=== PATIENT | male | born 1945 | race African-American/Black ===

== ENCOUNTER 2017-01-11 22:32 | Inpatient (IN) ==
[2017-01-12] MEDS ORDERED: Ringers Solution, Lactated 1,000 ML IVC ONE (00:37)
--- NOTE | 2017-01-12 01:06 | General Surg History&Physical ---
Date of Encounter: 01/12/17 Time of Encounter: 01:01 Assessment and Plan (1) Small bowel obstruction Current Visit: Yes Status: Acute admit to inpatient NPO, except medications IVF: D5LR@ 125 NG tube: intermittent wall suction; AXR to verify placement benavides catheter strict I/O q4hrs vitals q4hrs DVT prophylaxis: SQH activity as tolerated morphine IV 2mg q2hrs for pain control replete electrolytes -K@4.0 -Mg@2.0 -PO4@3.0 due to lack of surgical history, patient will likely require surgery to resolve obstruction; will attempt NG tube for decompression and resolution and also to allow time for resuscitation; however if no resolution within 24-48hrs, then will plan for operative intervention; The assessment and plan as outlined above was discussed with the patient and/or family members who expressed understanding and agreement. All questions were answered. (2) Hypovolemia dehydration Current Visit: Yes Status: Acute due to poor PO intake and vomiting; - IVF -benavides catheter to track UOP/overall fluid status/resuscitation efforts - trend electrolytes The assessment and plan as outlined above was discussed with the patient and/or family members who expressed understanding and agreement. All questions were answered. (3) Acute renal failure (ARF) Current Visit: Yes Status: Acute due to dehydration; - IVF, benavides catheter, monitor UOP The assessment and plan as outlined above was discussed with the patient and/or family members who expressed understanding and agreement. All questions were answered. Qualifiers: Acute renal failure type: unspecified Qualified Code(s): N17.9 - Acute kidney failure, unspecified (4) Hypertension Current Visit: Yes Status: Chronic - restart home meds - give one time dose of 20mg IV hydralazine - titrate SBP to < 150mm HG - cardiology consult for HTN management, pre-operative risk assessmenet; The assessment and plan as outlined above was discussed with the patient and/or family members who expressed understanding and agreement. All questions were answered. Qualifiers: Hypertension type: essential hypertension Qualified Code(s): I10 - Essential (primary) hypertension History of Present Illness Chief complaint: abdominal distension, nausea, vomiting HPI: Mr. Bocanegra is a 71 year old male with a PMH significant for hypertension and prostate cancer presents with a 2 day history of abdominal distention with associated nausea and vomiting. in addition the patient also reports mild, dull abdominal pain/ache along his umbilicus. the pain is nonradiating with no identifiable alleviating or exacerbating factors the patient reports no fevers, chills, chest pain or shortness of breath. Addition the patient reports not having a bowel movement for greater than 24hrs. due to the worsening abdominal distention pain as well as nausea and vomiting the patient went to the emergency department at an outside hospital for further evaluation CT scan was obtained which demonstrated a small bowel obstruction and he was subsequently transferred to [facility] for further care. Past Med Surg Social Fam HX - Past Medical History Source: patient Medical history: cancer, hypertension, kidney stones Psychiatric history: no psych history - Past Surgical History Surgical History: other (no abdominal surgeries) - Social History Smoking Status: Current some day smoker Smokeless Tobacco Status: No Alcohol use: occasionally Drug use: none - Additional Family History Additional family history: diabetes, HTN Medications and Allergies Losartan Potassium [Cozaar] 50 mg PO DAILY 03/22/16 [History] Tamsulosin [Flomax] 0.4 mg PO HS 11/24/16 [History] Trospium Chloride 20 mg PO DAILY 11/24/16 [History] Atenolol [Tenormin] 50 mg PO DAILY #30 tablet 12/02/16 [Rx] hydrALAZINE [HydrALAZINE] 25 mg PO BID 12/02/16 [History] Diltiazem HCl [Diltiazem 24Hr Cd] 240 mg PO DAILY 01/11/17 [History] Docusate [Colace] 100 mg PO DAILY 01/11/17 [History] 3 Allergy/AdvReac Type Severity Reaction Status Date / Time No Known Allergies Allergy Verified 01/11/17 15:39 Review of Systems All systems PM: reviewed and no additional remarkable complaints except as stated All systems PM: A 10-system review of systems was performed and is negative for pertinent findings except as documented above in the HPI. General Surgery Exam Initial Vital Signs Temp Pulse Resp BP Pulse Ox 98 F 61 18 187/100 88 01/11/17 22:41 01/11/17 22:41 01/11/17 22:41 01/11/17 22:41 01/11/17 22:41 - General physical appearance well developed, well nourished, no distress - Eyes normal ocular movement - ENT poor fci, CN 2-12 grossly intact - Respiratory normal expansion, normal respiratory effort, clear to auscultation - Abdomen Abdomen general surgery: Present: soft, tympanic, distended, tender Hernia: Present: none Results - Labs All other labs normal. wbc: 15.1 h/h: 15.3/43.2 plt:229 Na: 143 KL 3.8 Cl: 106 HCO3: 25 BUN: 18 Cr: 1.55 glu: 131 - Imaging CT scan - abdomen: report reviewed (dilated stomach, dilated loops of small bowel; colon decompressed; contrast within small bowel; juanley transition point in mid jejunum)
[2017-01-12] MEDS ORDERED: *HR* Labetalol 20 MG/4 ML SYRINGE IVP ONE (02:16)
[2017-01-12] MEDS: D5% in Lactated Ringers 1,000 ML IVC SCH ×2 (04:54→22:30)
[2017-01-12] MEDS: *HR* Heparin 5,000 UNIT/ML VIAL SQ SCH ×3 (06:01→20:49)
[2017-01-12 06:28] LABS: INR 1.1; Prothrombin Time 11.6 Seconds (9.4-12.1)
[2017-01-12 06:31] LABS: Activated Partial Thrombo Time 29.2 Seconds (26.0-36.0)
[2017-01-12 06:46] LABS: BUN/Creatinine Ratio 12 (6-26); Blood Urea Nitrogen 16 mg/dL (8-26); Calcium 9.3 mg/dL (8.6-10.8); Carbon Dioxide 25 mEq/L (19-29); Chloride 107 mEq/L (98-109); Glucose 138 mg/dL (70-99); Magnesium 1.7 mg/dL (1.6-2.6); Osmolality,Calculated 295 (280-300); Phosphorous 2.6 mg/dL (2.3-4.7); Potassium 3.4 mEq/L (3.5-4.5); Sodium 141 mEq/L (136-145); eGFR For African Americans > 60 (> 60); eGFR For Non-African Americans 51 (> 60)
[2017-01-12] MEDS ORDERED: hydrALAZINE 25 MG TABLET PO SCH (09:00)
[2017-01-12] MEDS ORDERED: Diltiazem CD (24hr) 240 MG CAPSULE PO SCH (09:00)
--- NOTE | 2017-01-12 09:11 | General Surgery Progress Note ---
Date of Encounter: 01/12/17 Time of Encounter: 07:30 - Assessment and Plan (1) Small bowel obstruction Current Visit: Yes Status: Acute cont NG tube; keep nPO cont IVF; change to d51/2NS +20K repeat KUB to assess for transit of contrast in the colon ambulate as tolerated possible OR in AM (2) Hypovolemia dehydration Current Visit: Yes Status: Acute cont IVF; change to MIVF (d51/2NS +20K cont benavides catheter at present (3) Acute renal failure (ARF) Current Visit: Yes Status: Acute improved Cr; cont to trend cont benavides catheter repeat labs in AM Qualifiers: Acute renal failure type: unspecified Qualified Code(s): N17.9 - Acute kidney failure, unspecified (4) Hypertension Current Visit: Yes Status: Chronic cont home meds consult cardiology for pre-op risk stratification consult renal for BP management, renal failure recommendations goal SBP <150 Qualifiers: Hypertension type: essential hypertension Qualified Code(s): I10 - Essential (primary) hypertension (5) Hypokalemia Current Visit: Yes Status: Acute replete lytes: keep K at 4.0 or greater likely due to GI losses from NG tube (6) Hypomagnesemia Current Visit: Yes Status: Acute replete mg; keep at 2.0 (7) Hypophosphatemia Current Visit: Yes Status: Acute replete Phosp; keep at 3.0 Subjective Patient reports: no new complaints (no acute events overnight; ), feels better, pain is less, flatus ( minimal flatus), afebrile Objective AF; hypertensive with SBP 160s-200s; all other vital signs within normal limits ; - General physical appearance well developed, well nourished, no distress - Eyes normal ocular movement (no changes in vision; no blurry vision; ) - ENT CN 2-12 grossly intact - Neck Neck exam: no lymphadectomy - Respiratory normal expansion, normal respiratory effort, clear to auscultation - Cardiovascular Cardiovascular exam: Present: RRR - Abdomen Abdomen: Present: soft, non tender (decreased distention), distended (decreased distension compared to admission) Hernia: none - Integumentary no rash, no abnormal pigmentation - Neurologic CN 2-12 grossly intact - Psychiatric oriented to time, oriented to person, oriented to place - Labs 01/12/17 06:10 01/12/17 06:10 - Imaging Abdominal x-ray: report reviewed, image reviewed (NG tube in the correct place) Consult Discharge Plan - Plan Referrals: Dejuan Bowen CNP [Primary Care Provider] -
[2017-01-12] MEDS: *HR* Morphine 2 MG/ML SYRINGE IVP PRN ×3 (09:22→21:35)
[2017-01-12] MEDS: Ipratropium/Albuterol Neb 3 ML IH SCH ×4 (10:49→20:18)
--- NOTE | 2017-01-12 14:19 | Cardiology Consult Note ---
Date of Encounter: 01/12/17 Time of Encounter: 14:16 Assessment and Plan (1) Accelerated hypertension Current Visit: Yes Status: Acute BP as high as 213/94. Most recent BP 173/83. Pt received PO antihypertensives this AM, since put on hold. At home, pt was on Cardizem CD 240mg daily, Hydralazine 25mg TID, Atenolol 50mg daily, Cozaar 50mg daily. Will start pt on scheduled IV Hydralazine 20mg [id number] and scheduled IV metoprolol 5mg [id number]. Continue to monitor/adjust as necessary. Goal BP ~170s systolic given he was previously 200s. Resume PO antihypertensives when able. Anticipate sign off once seen and evaluated by Dr. Mandeep Byrne. (2) Pre-operative cardiovascular examination Current Visit: Yes Status: Acute Evidence of small bowel obstruction. Pt has no personal hx of CAD. Denies chest pain or dyspnea. Stress test 10/06/16 was negative for ischemia or infarct. EKG has no ischemic changes from baseline. Recommend optimizing BP prior to surgery. Acceptable low risk from cardiac standpoint for surgery. Discussion w patient/family: The assessment and plan as outlined above was discussed with the patient and/or family members who expressed understanding and agreement. All questions were answered. Thank you for involving us in the care of your patient. Please call with any questions. I will discuss all the above with Dr. Mandeep Byrne and make changes as necessary. History of Present Illness Consult date: 01/12/17 Requesting physician: Alissa Madrigal Consult reason: HTN, preop Chief complaint: abdominal pain History of present illness: Mr. Bocanegra is a 71 year old male with PMH significant for hypertension, CKD stage 3, and prostate cancer presented with a 2 day history of abdominal distention with associated nausea and vomitin, reported not having a bowel movement for greater than 24hrs. CT scan at outside facility demonstrated a small bowel obstruction and he was subsequently transferred to [facility] for further care. He has been hypertensive with BP as high as 213 /94. Cardiology consulted for hypertension and cardiac risk stratification in the event he needs surgery. He denies chest pain or dyspnea, denies any personal hx of CAD. Prior CV testing: Stress test 10/06/16: Perfusion imaging negative for ischemia or infarct. Hypertensive during study. Gated EF 70%. Past Med Surg Social Fam HX - Past Medical History Medical history: cancer, hypertension, kidney stones Psychiatric history: no psych history - Past Surgical History Surgical History: other (no abdominal surgeries) - Social History Smoking Status: Current some day smoker Smokeless Tobacco Status: No Alcohol use: occasionally Drug use: none - Family History Brother Living Status: Still Living Hx Family Cardiac Disorders: Yes (heart disease) Hx Family GI Disorders: Yes (kidney disease) Medications and Allergies Losartan Potassium [Cozaar] 50 mg PO DAILY 03/22/16 [History] Tamsulosin [Flomax] 0.4 mg PO HS 11/24/16 [History] Trospium Chloride 20 mg PO DAILY 11/24/16 [History] Atenolol [Tenormin] 50 mg PO DAILY #30 tablet 12/02/16 [Rx] hydrALAZINE [HydrALAZINE] 25 mg PO TID 12/02/16 [History] Diltiazem HCl [Diltiazem 24Hr Cd] 240 mg PO DAILY 01/11/17 [History] Docusate [Colace] 100 mg PO DAILY 01/11/17 [History] Fluticasone Propionate Nasal [Flonase] 2 spr NS DAILY 01/12/17 [History] 3 Allergy/AdvReac Type Severity Reaction Status Date / Time No Known Allergies Allergy Verified 01/11/17 15:39 All Systems Review: A 10-system review of systems was performed and is negative for pertinent findings except as documented above in the HPI. - Gastrointestinal Gastrointestinal: abdominal pain, constipation, nausea Physical Examination Vital Signs, Last 4 Hours Temp Pulse Resp BP Pulse Ox 01/12/17 10:49 16 91 01/12/17 10:36 98.5 F 71 16 213/94 93 Vital Signs Temp Pulse Resp BP Pulse Ox 01/12/17 10:49 16 91 01/12/17 10:36 98.5 F 71 16 213/94 93 01/12/17 07:25 98.8 F 82 16 172/86 96 01/12/17 04:52 99.3 F 84 17 167/84 92 01/12/17 02:14 98.1 F 78 17 193/80 93 01/12/17 00:26 97.8 F 64 18 205/92 92 01/12/17 00:07 98 F 16 178/98 01/11/17 22:41 98 F 61 18 187/100 88 Intake and Output 01/11/17 01/12/17 01/12/17 23:59 07:59 15:59 Intake Total 30 / 30 Output Total 500 / 500 650 / 650 Balance -470 / -470 -650 / -650 Intake: Oral 0 / 0 Other 30 / 30 Output: Urine 300 / 300 Urethral ([place]) 300 / 300 Catheter 200 / 200 450 / 450 Gastric Drainage 0 / 0 200 / 200 Other: Meal NPO Stool Size Small Stool Color Brown Weight 90.718 kg 93.6 kg Blood Glucose* 129 105 Patient Weight 01/12/17 23:59 Weight 93.6 kg General: Conversant, No Apparent Distress HEENT: Atraumatic, Normocephaly, Mucus Membranes Moist Neck: No JVD, Normal carotid pulses Cardiac: Reg Rate and Rhythm, Normal S1 and S2, No Murmur Lungs: Normal Breath Sounds, No Wheeze, Rales, Rhonchi Neuro: Alert and responsive, No focal deficits noted Abdomen: Other (tender on palpation) Skin: No rashes noted on visualized skin Musculoskeletal: No Chest Wall Tenderness Extremities: No Clubbing, No Cyanosis, No Edema, Normal Pulses Results 01/12/17 06:10 01/12/17 06:10 Short CBC 01/12/17 Range/Units 06:10 WBC 14.5 H (4.3-11.1) K/mcL BMP 01/12/17 Range/Units 06:10 Sodium 141 (136-145) mEq/L Potassium 3.4 L (3.5-4.5) mEq/L Chloride 107 (98-109) mEq/L Carbon Dioxide 25 (19-29) mEq/L BUN 16 (8-26) mg/dL Creatinine 1.38 H (0.72-1.25) mg/dL Glucose 138 H (70-99) mg/dL Calcium 9.3 (8.6-10.8) mg/dL Impressions KUB X-Ray 01/12/17 00:21 IMPRESSION: Enteric tube side hole seen at the GE junction, with the tip in the proximal gastric body. Dilated loops of small bowel, which could be related to ileus or obstruction. D/ / Jules Lynne MD / Jules Lynne MD Interpreting Provider: Jules Lynne MD Abdomen X-Ray 01/12/17 08:57 IMPRESSION: CT and prior radiograph compare to current study suggest either ileus or a partial small bowel obstruction. Enteric contrast has progressed into the colon. Recommend advancement of nasogastric tube as side holes are at the GE junction. D/ / Eran Webb MD / Eran Webb MD Interpreting Provider: Eran Webb MD Active Medications Albuterol/Ipratropium (Duoneb) 3 ml IH [id number] JOSS Stop: 07/14/17 09:01 Last Admin: 01/12/17 10:49 Dose: 3 ml Heparin Sodium (Porcine) (Heparin) 5,000 unit SQ Q8HCO JOSS Stop: 07/14/17 06:01 Last Admin: 01/12/17 06:01 Dose: 5,000 unit Dextrose/Lactated Ringer's (D5% & Lact. Ringers 1000 Ml Bag) 1,000 mls @ 125 mls/hr IVC .Q8H JOSS Stop: 07/14/17 00:46 Last Admin: 01/12/17 04:54 Dose: 125 mls/hr Morphine Sulfate (Morphine Sulfate) 2 mg IVP Q4HR PRN PRN Reason: Pain Stop: 07/14/17 04:01 Last Admin: 01/12/17 09:22 Dose: 2 mg Oxybutynin Chloride (Ditropan) 5 mg PO BID JOSS Stop: 07/14/17 09:01 Last Admin: 01/12/17 10:53 Dose: Not Given Tamsulosin HCl (Flomax) 0.4 mg PO HS JOSS PRN Reason: Protocol Stop: 07/14/17 21:01 - Imaging and Cardiology Stress Test: report reviewed (SR, left atrial enlargement, LVH) Consult Discharge Plan - Plan Referrals: Dejuan Bowen, [employer] [Primary Care Provider] -
--- NOTE | 2017-01-12 17:24 | Event Note ---
Date of Encounter: 01/12/17 Time of Encounter: 17:22 Nephrology Hx of CKD stage III, with his latest GFR for [place] actually trending better. I've ordered CKD labs for the AM including Mg d/t the mild hypokalemia. Full recommendations to follow tomorrow. Thank you.
[2017-01-12] MEDS: *HR* Metoprolol 5 MG/5 ML VIAL IVP SCH (18:24)
[2017-01-12 18:43] LABS: Bilirubin,Urine Negative (Negative); Blood,Urine Negative (Negative); Clarity,Urine Clear (Clear); Color,Urine Yellow (Yellow); Glucose,Urine (UA) Normal (Normal); Ketones,Urine Negative (Negative); Leukocyte Esterase,Urine Negative (Negative); Nitrite,Urine Negative (Negative); Protein,Urine 30 mg/dL (Neg-Trace); Specific Gravity,Urine 1.019 (1.010-1.025); Urobilinogen,Urine Normal (Normal)
[2017-01-12 18:45] LABS: Bacteria,Urine None Seen per hpf (None-Few); Hyaline Casts,Urine None Seen per lpf (None-Few); Squamous Epithelial Cell,Urine Moderate per lpf (None-Few); WBC,Urine 0-3 per hpf (0-3)
--- NOTE | 2017-01-12 19:16 | Anesthesia Evaluation PreOp ---
Date of Encounter: 01/12/17 Time of Encounter: 21:30 - Past History Planned Operation: Diagnostic laparoscopy, poss ex lap Cardiac History: HTN Pulmonary History: Smoker [employer] History: Denies Any Significant HX Other Medical History: Renal (acute on chronic renal failure due to dehydration) Anesthesia History: No Prior Anesthetic Complications, Past Anesthesia (Right ureteroscopy) Alcohol Use: occasionally Drug use: none Medications and Allergies Losartan Potassium [Cozaar] 50 mg PO DAILY 03/22/16 [History] Tamsulosin [Flomax] 0.4 mg PO HS 11/24/16 [History] Trospium Chloride 20 mg PO DAILY 11/24/16 [History] Atenolol [Tenormin] 50 mg PO DAILY #30 tablet 12/02/16 [Rx] hydrALAZINE [HydrALAZINE] 25 mg PO TID 12/02/16 [History] Diltiazem HCl [Diltiazem 24Hr Cd] 240 mg PO DAILY 01/11/17 [History] Docusate [Colace] 100 mg PO DAILY 01/11/17 [History] Fluticasone Propionate Nasal [Flonase] 2 spr NS DAILY 01/12/17 [History] 3 Allergy/AdvReac Type Severity Reaction Status Date / Time No Known Allergies Allergy Verified 01/11/17 15:39 - Meds/Allergy Pre-op Review Medications Reviewed: Yes Allergies Reviewed: Yes Beta Blockers on Current Med List: Yes (atenolol) Anesthesia Results - Labs 01/12/17 06:10 01/12/17 06:10 - Imaging EKG: report reviewed, image reviewed (SINUS BRADYCARDIA) Additional studies: Cardiology clearance for surgery: Stress test 10/06/16 was negative for ischemia or infarct. EKG has no ischemic changes from baseline. Recommend optimizing BP prior to surgery. Acceptable low risk from cardiac standpoint for surgery. Anesthesia Exam Last Vital Signs Temp 99.0 F 01/12/17 19:12 Pulse 68 01/12/17 19:12 Resp 18 01/12/17 19:12 BP 152/74 01/12/17 19:12 Pulse Ox 93 01/12/17 19:12 Weight: 94 kg - HEENT Pupil (Motor): Pupils equal, EOMI Mallampati: III Teeth: Missing, Poor dentition Denture Type: Lower: Partial Oral Opening: Greater than 3 - [employer] LOC: Oriented [employer] Motor: Normal RUE, Normal LUE, Normal RLE, Normal LLE, Normal Face - Cardiac Rhythm: Regular Murmur: None - Pulmonary Breath Sounds: bilateral Clear Respiratory Effort: Symmetrical Anesthesia Assess/Plan ASA Score: 2 Modified [place] Scale for Level of Consciousness: Cooperative, oriented, and tranquil Anesthetic Plan: General Monitoring Plan: Standard Monitors Recovery Plan: PACU
[2017-01-13] MEDS: Ipratropium/Albuterol Neb 3 ML IH SCH ×8 (00:07→23:41)
[2017-01-13] MEDS: D5% in Lactated Ringers 1,000 ML IVC SCH ×4 (00:27→20:08)
[2017-01-13] MEDS: *HR* Metoprolol 5 MG/5 ML VIAL IVP SCH ×5 (00:28→23:08)
[2017-01-13] MEDS: *HR* Heparin 5,000 UNIT/ML VIAL SQ SCH ×3 (06:01→21:00)
[2017-01-13] MEDS: *HR* Morphine 2 MG/ML SYRINGE IVP PRN ×3 (06:11→20:07)
[2017-01-13 07:42] LABS: Basophils % 0.2 %; Eosinophils % 0.3 %; Hematocrit 39.2 % (37.5-50.1); Hemoglobin 13.1 g/dL (12.9-16.9); Immature Granulocytes % 0.3 % (0-4); Lymphocytes # 2.6 K/mcL (0.6-4.6); Lymphocytes % 17.2 %; Mean Corpuscular HGB Conc 33.4 g/dL (31.6-35.5); Mean Corpuscular Hemoglobin 29.4 pg (28.0-33.3); Mean Corpuscular Volume 87.9 fL (83.0-100.0); Mean Platelet Volume 11.9 fL (9.4-12.4); Monocytes # 1.5 K/mcL (0.0-1.3); Monocytes % 10.2 %; Neutrophils # 10.8 K/mcL (1.6-8.9); Platelet Count 215 K/mcL (140-400); Red Blood Count 4.46 M/mcL (4.19-5.50); Red Cell Distribution Width 13.7 % (11.5-14.5); Segmented Neutrophils % 71.8 %
[2017-01-13 09:00] LABS: Calcium 9.3 mg/dL (8.6-10.8); Magnesium 1.9 mg/dL (1.6-2.6); Phosphorous 2.2 mg/dL (2.3-4.7); Potassium 3.4 mEq/L (3.5-4.5); Uric Acid 5.9 mg/dL (3.5-7.2)
--- NOTE | 2017-01-13 12:05 | Electrocardiograph Report ---
[place] [address] Test Date: 2017-01-12 Pat Name: Bi Bocanegra Department: 115 Room: 3A25 Gender: M Barkeep: [id number] : 1945 Requested By: Bennie Pérez Order Number: [id number] Reading MD: Mandeep Byrne Measurements Intervals [place] Rate: 81 P: 62 TX: 145 QRS: 51 QRSD: 94 T: 38 QT: 352 QTc: 390 Interpretive Statements SINUS RHYTHM POSSIBLE RIGHT ATRIAL ENLARGEMENT LEFT ATRIAL ENLARGEMENT POSSIBLE LEFT VENTRICULAR HYPERTROPHY NONSPECIFIC T-WAVE ABNORMALITY Electronically Signed On 01-13-2017 12:03:38 EDT by Mandeep Byrne
--- NOTE | 2017-01-13 12:45 | Nephrology Consult Note ---
Date of Encounter: 01/13/17 Time of Encounter: 10:30 Assessment and Plan (1) CKD (chronic kidney disease), stage III Current Visit: Yes Status: Chronic Hx of CKD stage III and he's slightly better than his baseline, so there is no MYLES at present. Non-oliguric. Agree with IVF while NPO for the SBO. Mild hypokalemia, replete Hx of post-renal complications and follows with [facility]. Monitor UOP. I reviewed with the pt his recent CKD work up from the clinic appt a few weeks ago. 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 No need for HD at this time. Continue to follow a renal protective strategy. My colleague Dr. Bryant will be on-call tomorrow for our group. Thank you. (2) Vitamin D deficiency Current Visit: Yes Status: Acute See above (3) Hypertension Current Visit: Yes Status: Chronic See above Qualifiers: Hypertension type: essential hypertension Qualified Code(s): I10 - Essential (primary) hypertension History of Present Illness - Reason for Consult Consult date: 01/13/17 Chronic Kidney Disease Requesting physician: Nader Hebert - Chief Complaint CKD - History of Present Illness 71 y/o very pleasant AAM with a pmh of CKD stage III, longstanding uncontrolled HTN and et al who presented with an SBO. Nephrology was consulted given his hx of CKD. He did not affirm use of NSAIDs recently. He was accompanied by his brother. The pt recently established with me in my CKD clinic in [place]. He had an NGT placed on suction. He did not report LE edema or CP. Past Med Surg Social Fam HX - Past Medical History Medical history: cancer, hypertension, kidney stones Psychiatric history: no psych history - Past Surgical History Surgical History: other (no abdominal surgeries) - Social History Smoking Status: Current some day smoker Smokeless Tobacco Status: No Alcohol use: occasionally Drug use: none - Family History Brother Living Status: Still Living Hx Family Cardiac Disorders: Yes (heart disease) Hx Family GI Disorders: Yes (kidney disease) Medications and Allergies Losartan Potassium [Cozaar] 50 mg PO DAILY 03/22/16 [History] Tamsulosin [Flomax] 0.4 mg PO HS 11/24/16 [History] Trospium Chloride 20 mg PO DAILY 11/24/16 [History] Atenolol [Tenormin] 50 mg PO DAILY #30 tablet 12/02/16 [Rx] hydrALAZINE [HydrALAZINE] 25 mg PO TID 12/02/16 [History] Diltiazem HCl [Diltiazem 24Hr Cd] 240 mg PO DAILY 01/11/17 [History] Docusate [Colace] 100 mg PO DAILY 01/11/17 [History] Fluticasone Propionate Nasal [Flonase] 2 spr NS DAILY 01/12/17 [History] 3 Allergy/AdvReac Type Severity Reaction Status Date / Time No Known Allergies Allergy Verified 01/11/17 15:39 Review of Systems All Systems: reviewed and no additional remarkable complaints except as stated Exam - Vital Signs Vital signs: Initial Vital Signs Temp Pulse Resp BP Pulse Ox 98 F 61 18 187/100 88 01/11/17 22:41 01/11/17 22:41 01/11/17 22:41 01/11/17 22:41 01/11/17 22:41 Vital Signs - Last 8 Hours Temp Pulse Resp BP Pulse Ox 01/13/17 10:44 98.0 F 69 20 171/85 93 01/13/17 08:48 92 01/13/17 08:00 16 90 01/13/17 05:59 99.7 F H 71 20 157/72 92 Intake and Output 01/12/17 01/13/17 01/13/17 23:59 07:59 15:59 Intake Total 30 / 30 30 / 30 1000 / 1000 Output Total 300 / 300 925 / 925 325 / 325 Balance -270 / -270 -895 / -895 675 / 675 Intake: IV Fluids 1000 / 1000 D5% & Lact. Ringers 1000 1000 / 1000 Ml Bag 1,000 ML @ 125 mls /hr IVC .Q8H [facility] Rx#: [id number] Oral 0 / 0 0 / 0 0 / 0 Other 30 / 30 30 / 30 Output: Catheter 300 / 300 250 / 250 150 / 150 Gastric Drainage 0 / 0 675 / 675 175 / 175 Other: Meal NPO NPO Percent of Meal Consumed 0% Weight 93.1 kg Blood Glucose* 128 140 130 Patient Weight 01/13/17 23:59 Weight 93.1 kg - General Appearance General appearance: well-developed, well-nourished, appears started age Additional Comments: NGT Neck: supple Respiratory: clear Cardiology: no edema, regular rate, regular rhythm, normal S1, normal S2 Gastrointestinal: no tenderness, no guarding Integumentary: warm and dry Neurologic: no focal deficit, no asterixis, alert and oriented x3 Musculoskeletal: no deformities, no erythema, no clubbing Psychiatric: cooperative Results - Lab Results 01/13/17 04:40 01/13/17 07:58 Most recent lab results Calcium 9.3 mg/dL (8.6-10.8) 01/13/17 07:58 Phosphorus 2.2 mg/dL (2.3-4.7) L 01/13/17 07:58 Magnesium 1.9 mg/dL (1.6-2.6) 01/13/17 07:58 I reviewed the above information and progress notes, labs, med lists, vitals and imaging studies. Consult Discharge Plan - Plan Referrals: Dejuan Bowen [employer]CH[employer] [Primary Care Provider] -
[2017-01-13] MEDS ORDERED: Lidocaine -MPF 4% 5 ML AMPUL ONE (14:45)
[2017-01-13] MEDS ORDERED: Dexamethasone 4 MG/ML VIAL ONE (14:45)
[2017-01-13] MEDS ORDERED: *HR* FentaNYL (PF) 100 MCG/2 ML VIAL ONE (14:45)
[2017-01-13] MEDS ORDERED: *HR* Propofol 200 MG/20 ML VIAL IVP ONE (14:45)
[2017-01-13] MEDS ORDERED: *HR* Rocuronium Bromide 50 MG/5 ML VIAL ONE (14:45)
[2017-01-13] MEDS ORDERED: Ondansetron 4 MG/2 ML VIAL ONE (14:45)
[2017-01-13] MEDS ORDERED: Lidocaine -MPF 2% 2 ML VIAL ONE (14:45)
[2017-01-13] MEDS ORDERED: Neostigmine Methylsulfate 3 MG/3 ML SYRINGE ONE (14:45)
[2017-01-13] MEDS ORDERED: *HR* Succinylcholine 200 MG/10 ML VIAL IVP ONE (14:45)
[2017-01-13] MEDS ORDERED: *HR* HYDROmorphone 2 MG/ML SYRINGE ONE (15:57)
[2017-01-13] MEDS ORDERED: *HR* Phenylephrine 10 MG/ML VIAL ONE (16:07)
--- NOTE | 2017-01-13 17:55 | Operative Note ---
Date of procedure: 01/13/17 Pre-op diagnosis: small bowel obstruction Post-op diagnosis: other (small bowel obstruction due to likely malignant tumor) Procedure: diagnostic laparoscopy exteriorization of small bowel small bowel resection with primary (stapled) anastomosis collection of intraperitoneal fluid for cytology Implants: none Complications: none Anesthesia: GETA Local Anesthetics: 0.5% Sensorcaine HCL SubQ (cc) (30cc) Surgeon: Bennie Pérez Estimated blood loss (cc): 10 Specimen: small bowel, intraperitoneal flid Condition: stable Disposition: PACU Procedure in Detail: Indications: Is a 71-year-old gentleman with a past medical history significant for hypertension 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 The patient came to the emergency department for further evaluation. A CT scan did demonstrate evidence consistent with a small bowel obstruction with a transition point in the right mid abdomen. The patient was admitted into the hospital for resuscitation and preoperative risk stratification. Although he did begin to show signs that his obstruction was possibly resolving with flatus , passage of contrast into the colon, decreased abdominal distention on exam, his subsequent imaging demonstrated a persistently dilated segment of small bowel. Due to these findings we elected to take the patient to the operating room for further investigation and management. Alternatives to surgery, risks, and benefits were explained to the patient. The patient did agree to surgical intervention Procedure: The patient was brought into the operating room suite on was positioned in the supine position. He did have mechanical DVT prophylaxis applied prior to induction. Underwent smooth induction of anesthesia. He did receive preoperative antibiotics with 2g of Ancef. Prepped and draped in usual fashion. A timeout was held identifying correct patient, pathology, and procedure. Everyone was in agreement and we will begin a procedure. I started by creating a 10 mm super umbilical incision and via open Adam technique did enter into the peritoneum. We did visualize directly below the point of entry to ensure that there was no injury to small bowel or bleeding of which there was not. I then investigated the entire peritoneal cavity. There were no liver nor peritoneal lesions. Of note there was ascitic fluid both above the liver and along the right side of the abdomen. Using a 15 blade I created two 5 mm incisions, one suprapubically and one 1 handbreadth away at the left lateral aspect of the abdomen and under direct visualization did insert two 5 mm trocars. I inserted the laparoscopic DeBakeys and begin the procedure. I identified the cecum and began running the bowel from the terminal ileum towards the ligament of Treitz. It should be stated that as we approached the middle of the abdomen there was more dark ascitic fluid. I also discovered a small 2-3 mm white lesion on the antimesenteric aspect of the small bowel in [address] In addition to that we also found the same white lesion in the mesentery we continued to run the bowel and we noticed that there is a larger mass that was soft in nature which looked to be embedded in the mesentery. I continued to run the bowel towards the ligament of Treitz. Should be stated that around the more proximal white lesion there was what looked to be a transition point because proximal to that the bowel was more dilated. I then ran the bowel back towards the lesion, took pictures, and it was at this point and time that I decided to extend the umbilical incision so that I could exteriorize the small bowel. I ended the laparoscopic portion and did extend the incision using a 15 blade. I cut the skin and, using the Bovie instrument, used cautery to dissect through the soft tissue until I entered into the peritoneum. I suctioned the fluid above the liver and along the right side of the abdomen. that fluid was sent for cytology. Using the DeBakey that I had used to grasp the small bowel, I did exteriorize the segment of small intestine. Should be stated that I found a segment of bowel that contained multiple white lesions and elected to resect this portion. I did elect to leave the mass that was embedded into the mesentery due to concern for devascularizing the entire small bowel. Using electrocautery I scored the mesentery and using the Emma instruments made a mesenteric window. Through the window I inserted the 75 mm stapler with a bowel load. And stapled both proximally and distally in this fashion. And then using the Impact machine I did ligate through the mesentery. Should be stated that we did remain proximal to the mass embedded in the mesentery. It was not included in our specimen. After ligating the mesentery we did pass the section of bowel off the operating field. I noted there was bleeding coming from the from the mass in the mesentery and using 3-0 Silk suture in a [id number] fashion I did control for bleeding. Then I made the anastomosis. using the Allis clamps I clamped the stapled end of the of the small bowel both proximal and distally using the Melendez scissors I did made enterotomies. using the's using the stapler 75 mm blue load I did create the [id number] anastomosis. As we lined up the open end I used a TA stapler to staple across the open portion. The Melendez scissors were used to cut the excess. I then used a 3-0 Vicryl suture to as a crotch stitch. And then returned the small bowel back into the abdomen. I changed my outer gloves and began closing. Using 1-0 PDS I closed the fascia in a running fashion and then closed the deep dermal layers with 3-0 Vicryl in an interrupted fashion. I then injected the incision with with bupivacaine as a local anesthetic approximately 30 mL. And then closed the skin with a 4-0 running Monocryl in a subcuticular fashion. I also closed the two 5 mm trocar incisions using interrupted Monocryl as well and then sealed the incisions with Dermabond. the patient tolerated the procedure and was in stable condition.
[2017-01-13] MEDS ORDERED: Acetaminophen IV 1,000 MG/100 ML INFUS..BTL ONE (17:56)
[2017-01-13] MEDS ORDERED: Acetaminophen IV 1,000 MG/100 ML INFUS..BTL IVPB ONE (18:02)
--- NOTE | 2017-01-13 18:43 | Anesthesia Evaluation Post Op ---
Date of Encounter: 01/13/17 Time of Encounter: 18:00 - Vital Signs Vital Signs: Vital Signs/O2 Sat/Glucose, Most Current Temp Pulse Resp BP Pulse Ox 01/13/17 18:00 83 15 160/75 95 01/13/17 17:50 82 16 161/78 95 01/13/17 17:41 98.4 F 82 15 159/69 93 01/13/17 17:33 82 14 156/79 98 01/13/17 17:20 84 16 145/73 97 01/13/17 17:10 98.2 F 104 16 170/81 94 - Lungs Lungs: Clear Ascult./Percussion - Airway Airway: Non-obstructed - Cardiovascular Regular Rate - Mental Status Mental Status: Alert & Oriented, Answers Appropriately - Pain Pain Scale: 2 Pain Scale used: Gil-Sheridan (Faces) - Nausea Vomiting Nausea Vomiting: Not Present - Hydration Hydration: Tolerates oral liquids - Discharge PostOp Status: Transfer Patient to floor Anes Supervising Prov Stmt: Pt seen/evaluated, VSS and pt has met criteria for discharge to floor. - MD Pablito
[2017-01-14] MEDS: *HR* Morphine 2 MG/ML SYRINGE IVP PRN ×3 (00:07→09:06)
[2017-01-14] MEDS: D5% in Lactated Ringers 1,000 ML IVC SCH ×3 (03:28→22:18)
[2017-01-14] MEDS: *HR* Heparin 5,000 UNIT/ML VIAL SQ SCH ×3 (05:27→22:19)
[2017-01-14] MEDS: *HR* Metoprolol 5 MG/5 ML VIAL IVP SCH ×3 (05:27→17:56)
[2017-01-14] MEDS: Ipratropium/Albuterol Neb 3 ML IH SCH ×6 (05:48→23:47)
[2017-01-14] MEDS: Fluticasone Propionate Nasal 50 MCG/SPRAY BOTTLE NS SCH (09:34)
[2017-01-14] MEDS ORDERED: *HR* HYDROmorphone 20 MG/20 ML PCA IVC PRN (13:06)
--- NOTE | 2017-01-14 14:18 | General Surgery Progress Note ---
Date of Encounter: 01/14/17 Time of Encounter: 14:00 - Assessment and Plan (1) Small bowel obstruction Current Visit: Yes Status: Acute POD #1 diagnostic laparoscopy, exteriorization of small bowel, small bowel resection with primary (stapled) anastomosis, collection of intraperitoneal fluid for cytology Pathology pending Remove NG tube NPO except ice chips while awaiting return of bowel function IF fluids- 125ml/hour Supportive care/pain control- BOOT LACE CUTTER MACHINE pump Increase activity as tolerated- ambulate hallways with assistance Incentive spirometer every 1 hour while awake PPI therapy daily Repeat am labs (2) Acute renal failure superimposed on chronic kidney disease Current Visit: Yes Status: Acute Continue IV hydration Avoid nephrotoxic medications [place] catheter to SD for strict I&Os Repeat am labs Nephrology consulted Qualifiers: Acute renal failure type: unspecified Chronic kidney disease stage: stage 3 (moderate) Qualified Code(s): N17.9 - Acute kidney failure, unspecified; N18.3 - Chronic kidney disease, stage 3 (moderate) (3) Accelerated hypertension Current Visit: Yes Status: Chronic SBP at goal from cardiology recommendations Continue current regimen Will resume home medications with advacement of diet (4) DVT prophylaxis Current Visit: Yes Status: Acute Heparin 5000 units every 8 hours for DVT prophylaxis Ambulate hallways with assistance for DVT prophylaxis Subjective Patient reports: no new complaints, still having pain, flatus, no bowel movement , afebrile Objective Vital Signs - Last 8 Hours Temp Pulse Resp BP Pulse Ox 01/14/17 11:23 17 91 01/14/17 11:02 99.2 F 90 18 174/77 91 01/14/17 06:34 98.9 F 83 18 178/77 90 Intake and Output 01/13/17 01/14/17 01/14/17 23:59 07:59 15:59 Intake Total 1000 / 1000 1020 / 1020 1000 / 1000 Output Total 620 / 620 600 / 600 0 / 0 Balance 380 / 380 420 / 420 1000 / 1000 Intake: IV Fluids 1000 / 1000 1000 / 1000 1000 / 1000 D5% & Lact. Ringers 1000 1000 / 1000 1000 / 1000 1000 / 1000 Ml Bag 1,000 ML @ 125 mls /hr IVC .Q8H JOSS Rx#: [id number] Oral 20 / 20 Output: Urine 0 / 0 Estimated Blood Loss 20 / 20 Catheter 500 / 500 400 / 400 Gastric Drainage 100 / 100 200 / 200 0 / 0 Left Nare 100 / 100 50 / 50 Other: Meal NPO Weight 93.3 kg Blood Glucose* 133 142 Patient Weight 01/14/17 23:59 Weight 93.3 kg - General physical appearance well developed, well nourished, moderate pain - Eyes normal ocular movement - ENT dry mucosa, atraumatic, normocephalic - Neck Neck exam: trachea midline - Respiratory normal respiratory effort, clear to auscultation - Cardiovascular Cardiovascular exam: Present: RRR - Abdomen Abdomen: Present: bowel sounds present (minimal, hypoactive), soft, tender ( Expected postoperative tenderness) - Incision Incision: Present: clean and dry, intact - Genitourinary other (Madera catheter to straight drain with clear, yellow urine) - Integumentary no rash, no growths, no abnormal pigmentation - Neurologic CN 2-12 grossly intact - Psychiatric oriented to time, oriented to person, oriented to place, speech is normal, memory intact - Labs 01/13/17 04:40 01/13/17 07:58 - VTE Documentation of Mechanical Device: Intermittent pneumatic compression device Consult Discharge Plan - Plan Referrals: Dejuan Bowen DEPLOYMENT TECHNICIAN [Primary Care Provider] - - Attending Attestation For this encounter, I have reviewed the INTERLOCKING AND SIGNAL MECHANIC or PA documentation, treatment plan, and medical decision making; and I have had face to face time with this patient.
--- NOTE | 2017-01-14 14:28 | Physician Discharge Referral ---
Home Health/Hosp Referral Info Transfer to: Home Health Attending Provider: Dr. Bennie Pérez Provider in Charge Post Discharge: Other (Dr. Bennie Pérez and PCP) - Diagnosis (1) Small bowel obstruction Priority: Primary Status: Resolved (2) Acute renal failure superimposed on chronic kidney disease Priority: Secondary Status: Resolved (3) Accelerated hypertension Priority: Secondary Status: Chronic - Respiratory Orders None Smoking Cessation: Smoking cessation has been advised. For more information, call the [place] Tobacco Quit Line at 3-559-XCLL-NOW. - Dressing/Wound Care Site: Abdomen Type of Dressing/Treatments w/Frequency: Cleanse incision with soap and water and pat dry daily, may leave open to air - Diet/Nutrition Diet/Nutrition Orders: Mechanical Soft (For 2 weeks and then advance to regular diet as tolerated) - Activity Activity Orders: Up ad radha, Ambulate, Chair - Services Needed Following services are medically necessary services: Nursing, Home Health Aide, Physical Therapy, Occupational Therapy - Transfer Medications Prescriptions: OxyCODONE/APAP 10/325 [Percocet 10/325 MG] 1 each PO Q4HR PRN #30 tablet PRN Reason: Pain Docusate [Colace] 100 mg PO DAILY #30 capsule Home Medications: Losartan Potassium [Cozaar] 50 mg PO DAILY 03/22/16 [History] Tamsulosin [Flomax] 0.4 mg PO HS 11/24/16 [History] Trospium Chloride 20 mg PO DAILY 11/24/16 [History] Atenolol [Tenormin] 50 mg PO DAILY #30 tablet 12/02/16 [Rx] hydrALAZINE [HydrALAZINE] 25 mg PO TID 12/02/16 [History] Diltiazem HCl [Diltiazem 24Hr Cd] 240 mg PO DAILY 01/11/17 [History] Docusate [Colace] 100 mg PO DAILY 01/11/17 [History] Fluticasone Propionate Nasal [Flonase] 2 spr NS DAILY 01/12/17 [History] Docusate [Colace] 100 mg PO DAILY #30 capsule 01/14/17 [Rx] OxyCODONE/APAP 10/325 [Percocet 10/325 MG] 1 each PO Q4HR PRN #30 tablet [Rx] Allergies/Adverse Reactions: 3 Allergy/AdvReac Type Severity Reaction Status Date / Time No Known Allergies Allergy Verified 01/11/17 15:39 Certification: Further, I certify that my clinical findings support that this patient is homebound (i.e. absences from home require considerable and taxing effort and are for medical reasons or sabianist services or infrequently or short duration when for other reasons) because: Homebound Reason: Patient requires assistance of a person or device to safely leave home, Post-surgery restriction and or conditions limit ability to leave home, Leaving home requires considerable and taxing effort due to condition Attestation: My signature below is to certify that this patient is under my care and that I, or nurse practitioner, or a physician's facility assistant working with me, has a face-to -face encounter with this patient.
[2017-01-14] MEDS ORDERED: Simethicone 80 MG TAB.CHEW PO PRN (18:09)
[2017-01-14] MEDS ORDERED: *HR* LORazepam 0.5 MG TABLET PO PRN (18:09)
[2017-01-15] MEDS: *HR* Metoprolol 5 MG/5 ML VIAL IVP SCH ×5 (00:12→23:17)
[2017-01-15] MEDS: D5% in Lactated Ringers 1,000 ML IVC SCH ×2 (03:56→12:15)
[2017-01-15] MEDS: Ipratropium/Albuterol Neb 3 ML IH SCH ×5 (04:08→20:23)
[2017-01-15] MEDS: *HR* Heparin 5,000 UNIT/ML VIAL SQ SCH ×3 (05:55→20:05)
[2017-01-15 06:43] LABS: Basophils % 0.3 %; Eosinophils % 0.2 %; Hematocrit 35.3 % (37.5-50.1); Hemoglobin 11.6 g/dL (12.9-16.9); Immature Granulocytes % 0.3 % (0-4); Lymphocytes # 1.5 K/mcL (0.6-4.6); Lymphocytes % 14.7 %; Mean Corpuscular HGB Conc 32.9 g/dL (31.6-35.5); Mean Corpuscular Hemoglobin 29.2 pg (28.0-33.3); Mean Corpuscular Volume 88.9 fL (83.0-100.0); Monocytes # 1.2 K/mcL (0.0-1.3); Monocytes % 11.3 %; Neutrophils # 7.7 K/mcL (1.6-8.9); Platelet Count 189 K/mcL (140-400); Red Blood Count 3.97 M/mcL (4.19-5.50); Red Cell Distribution Width 13.7 % (11.5-14.5); Segmented Neutrophils % 73.2 %
[2017-01-15 06:56] LABS: BUN/Creatinine Ratio 9 (6-26); Blood Urea Nitrogen 11 mg/dL (8-26); Carbon Dioxide 27 mEq/L (19-29); Chloride 106 mEq/L (98-109); Glucose 136 mg/dL (70-99); Osmolality,Calculated 291 (280-300); Potassium 3.3 mEq/L (3.5-4.5); Sodium 140 mEq/L (136-145); eGFR For African Americans > 60 (> 60); eGFR For Non-African Americans 56 (> 60)
[2017-01-15] MEDS: Fluticasone Propionate Nasal 50 MCG/SPRAY BOTTLE NS SCH (08:10)
--- NOTE | 2017-01-15 13:21 | General Surgery Progress Note ---
Date of Encounter: 01/15/17 Time of Encounter: 13:19 - Assessment and Plan (1) Small bowel obstruction Current Visit: Yes Status: Resolved Patient is status post small bowel resection. Noted mild abdominal distention but positive flatus. Will advance to clear liquids and decrease IV fluids. Encourage out of bed and ambulation. (2) Acute renal failure superimposed on chronic kidney disease Current Visit: Yes Status: Resolved His creatinine has slowly improved. We will continue with mild IV fluid hydration in addition to advancement of oral diet. Follow BMP. Qualifiers: Acute renal failure type: unspecified Chronic kidney disease stage: stage 3 (moderate) Qualified Code(s): N17.9 - Acute kidney failure, unspecified; N18.3 - Chronic kidney disease, stage 3 (moderate) (3) Hypokalemia Current Visit: Yes Status: Acute Mild hypokalemia at 3.3. We will replace with IV potassium. Subjective Patient reports: other (Patient denies any noausea or vomiting. Tolerating ice chips. No BM but admits to some flatus. Noted abdominal pain.) Objective Vital Signs - Last 8 Hours Temp Pulse Resp BP Pulse Ox 01/15/17 12:00 18 90 01/15/17 10:37 99.0 F 90 16 182/82 92 01/15/17 08:11 18 89 01/15/17 05:53 99.9 F H 94 17 178/73 93 Intake and Output 01/14/17 01/15/17 01/15/17 23:59 07:59 15:59 Intake Total 1000 / 1000 1000 / 1000 1000 / 1000 Output Total 450 / 450 300 / 300 300 / 300 Balance 550 / 550 700 / 700 700 / 700 Intake: IV Fluids 1000 / 1000 1000 / 1000 1000 / 1000 D5% & Lact. Ringers 1000 1000 / 1000 1000 / 1000 1000 / 1000 Ml Bag 1,000 ML @ 125 mls /hr IVC .Q8H JOSS Rx#: [id number] Oral 0 / 0 Output: Urine 450 / 450 300 / 300 300 / 300 Other: # Bowel Movements 0 0 Weight 93 kg Blood Glucose* 139 118 126 Patient Weight 01/15/17 23:59 Weight 93 kg - General physical appearance well nourished, no distress - Abdomen Abdomen: Present: bowel sounds present, soft, tender (noted incisional pain. No erythema. No drainage.) - Labs 01/15/17 06:23 01/16/17 04:26 Diabetes panel 01/15/17 Range/Units 06:23 Sodium 140 (136-145) mEq/L Potassium 3.3 L (3.5-4.5) mEq/L Chloride 106 (98-109) mEq/L Carbon Dioxide 27 (19-29) mEq/L BUN 11 (8-26) mg/dL Creatinine 1.28 H (0.72-1.25) mg/dL Glucose 136 H (70-99) mg/dL Calcium 9.0 (8.6-10.8) mg/dL Calcium panel 01/15/17 Range/Units 06:23 Calcium 9.0 (8.6-10.8) mg/dL Pituitary panel 01/15/17 Range/Units 06:23 Sodium 140 (136-145) mEq/L Potassium 3.3 L (3.5-4.5) mEq/L Chloride 106 (98-109) mEq/L Carbon Dioxide 27 (19-29) mEq/L BUN 11 (8-26) mg/dL Creatinine 1.28 H (0.72-1.25) mg/dL Glucose 136 H (70-99) mg/dL Calcium 9.0 (8.6-10.8) mg/dL Adrenal panel 01/15/17 Range/Units 06:23 Sodium 140 (136-145) mEq/L Potassium 3.3 L (3.5-4.5) mEq/L Chloride 106 (98-109) mEq/L Carbon Dioxide 27 (19-29) mEq/L BUN 11 (8-26) mg/dL Creatinine 1.28 H (0.72-1.25) mg/dL Glucose 136 H (70-99) mg/dL Calcium 9.0 (8.6-10.8) mg/dL - VTE Documentation of Mechanical Device: Intermittent pneumatic compression device Consult Discharge Plan - Plan Referrals: Bennie Pérez MD [Non-Partnered Physician] - 01/24/17 2:00 pm Dejuan Bowen CNP [Primary Care Provider] - Prescriptions: OxyCODONE/APAP 10/325 [Percocet 10/325 MG] 1 each PO Q4HR PRN #30 tablet PRN Reason: Pain Docusate [Colace] 100 mg PO DAILY #30 capsule
[2017-01-15] MEDS: 0.9 % Sodium Chloride 1,000 ML IVC SCH (14:20)
[2017-01-16] MEDS: Ipratropium/Albuterol Neb 3 ML IH SCH ×7 (00:15→23:22)
[2017-01-16 05:21] LABS: BUN/Creatinine Ratio 11 (6-26); Blood Urea Nitrogen 13 mg/dL (8-26); Calcium 8.7 mg/dL (8.6-10.8); Carbon Dioxide 26 mEq/L (19-29); Chloride 107 mEq/L (98-109); Glucose 93 mg/dL (70-99); Osmolality,Calculated 290 (280-300); Potassium 3.5 mEq/L (3.5-4.5); Sodium 140 mEq/L (136-145); eGFR For African Americans > 60 (> 60); eGFR For Non-African Americans > 60 (> 60)
[2017-01-16] MEDS: 0.9 % Sodium Chloride 1,000 ML IVC SCH (05:48)
[2017-01-16] MEDS: *HR* Heparin 5,000 UNIT/ML VIAL SQ SCH ×3 (05:48→20:32)
[2017-01-16] MEDS: *HR* Metoprolol 5 MG/5 ML VIAL IVP SCH ×3 (05:49→17:11)
[2017-01-16] MEDS: Fluticasone Propionate Nasal 50 MCG/SPRAY BOTTLE NS SCH (07:51)
--- NOTE | 2017-01-16 10:01 | General Surgery Progress Note ---
Date of Encounter: 01/16/17 Time of Encounter: 10:00 - Assessment and Plan (1) Small bowel obstruction Current Visit: Yes Status: Resolved Patient is status post small bowel resection. Denies any nausea or vomiting. Tolerated clears. Will advance to soft foods and DC IVF. Encourage out of bed and ambulation. (2) Acute renal failure superimposed on chronic kidney disease Current Visit: Yes Status: Resolved Creatinine level normal. Qualifiers: Acute renal failure type: unspecified Chronic kidney disease stage: stage 3 (moderate) Qualified Code(s): N17.9 - Acute kidney failure, unspecified; N18.3 - Chronic kidney disease, stage 3 (moderate) (3) Hypokalemia Current Visit: Yes Status: Acute Potassium level low normal at 3.5. Continue to monitor. Subjective Patient reports: other (Admits to flatus. No nausea. Mild incisional pain.) Objective Vital Signs - Last 8 Hours Temp Pulse Resp BP Pulse Ox 01/16/17 07:40 16 92 01/16/17 07:30 99.7 F H 76 18 163/74 91 01/16/17 04:06 99.9 F H 76 18 160/71 93 Intake and Output 01/15/17 01/16/17 01/16/17 23:59 07:59 15:59 Intake Total 200 / 200 1000 / 1000 Output Total 250 / 250 500 / 500 Balance -50 / -50 500 / 500 Intake: IV Fluids 200 / 200 1000 / 1000 0.9 % Sodium Chloride 1, 1000 / 1000 000 ML @ 80 mls/hr IVC . [id number] JOSS Rx#: [id number] Potassium Chloride 10 mEq 200 / 200 /100mL 10 meq In 100 ml @ 100 mls/hr IVPB Q1H JOSS Rx#:[id number] Oral 0 / 0 0 / 0 Output: Urine 250 / 250 500 / 500 Other: Meal Dinner Percent of Meal Consumed 10% # Bowel Movements 0 Weight 94.2 kg Patient Weight 01/16/17 23:59 Weight 94.2 kg - Labs 01/15/17 06:23 01/16/17 04:26 Diabetes panel 01/16/17 Range/Units 04:26 Sodium 140 (136-145) mEq/L Potassium 3.5 (3.5-4.5) mEq/L Chloride 107 (98-109) mEq/L Carbon Dioxide 26 (19-29) mEq/L BUN 13 (8-26) mg/dL Creatinine 1.19 (0.72-1.25) mg/dL Glucose 93 (70-99) mg/dL Calcium 8.7 (8.6-10.8) mg/dL Calcium panel 01/16/17 Range/Units 04:26 Calcium 8.7 (8.6-10.8) mg/dL Pituitary panel 01/16/17 Range/Units 04:26 Sodium 140 (136-145) mEq/L Potassium 3.5 (3.5-4.5) mEq/L Chloride 107 (98-109) mEq/L Carbon Dioxide 26 (19-29) mEq/L BUN 13 (8-26) mg/dL Creatinine 1.19 (0.72-1.25) mg/dL Glucose 93 (70-99) mg/dL Calcium 8.7 (8.6-10.8) mg/dL Adrenal panel 01/16/17 Range/Units 04:26 Sodium 140 (136-145) mEq/L Potassium 3.5 (3.5-4.5) mEq/L Chloride 107 (98-109) mEq/L Carbon Dioxide 26 (19-29) mEq/L BUN 13 (8-26) mg/dL Creatinine 1.19 (0.72-1.25) mg/dL Glucose 93 (70-99) mg/dL Calcium 8.7 (8.6-10.8) mg/dL - VTE Documentation of Mechanical Device: Intermittent pneumatic compression device Consult Discharge Plan - Plan Referrals: Bennie Pérez MD [Non-Partnered Physician] - 01/24/17 2:00 pm Dejuan Bowen CNP [Primary Care Provider] - Prescriptions: OxyCODONE/APAP 10/325 [Percocet 10/325 MG] 1 each PO Q4HR PRN #30 tablet PRN Reason: Pain Docusate [Colace] 100 mg PO DAILY #30 capsule
[2017-01-16] MEDS ORDERED: *HR* OxyCODONE/APAP 10/325 TABLET PO PRN (10:17)
[2017-01-16] MEDS ORDERED: *HR* HYDROmorphone 2 MG/ML SYRINGE IVP PRN (10:18)
[2017-01-16] MEDS: Ibuprofen 600 MG TABLET PO PRN (20:42)
[2017-01-17] MEDS: *HR* Metoprolol 5 MG/5 ML VIAL IVP SCH ×3 (01:07→12:54)
[2017-01-17] MEDS: Ipratropium/Albuterol Neb 3 ML IH SCH ×4 (04:15→15:38)
[2017-01-17] MEDS: Ibuprofen 600 MG TABLET PO PRN (04:26)
[2017-01-17 04:43] LABS: BUN/Creatinine Ratio 13 (6-26); Blood Urea Nitrogen 14 mg/dL (8-26); Calcium 8.9 mg/dL (8.6-10.8); Carbon Dioxide 24 mEq/L (19-29); Chloride 107 mEq/L (98-109); Glucose 88 mg/dL (70-99); Osmolality,Calculated 288 (280-300); Potassium 3.2 mEq/L (3.5-4.5); Sodium 139 mEq/L (136-145); eGFR For African Americans > 60 (> 60); eGFR For Non-African Americans > 60 (> 60)
[2017-01-17] MEDS: *HR* Heparin 5,000 UNIT/ML VIAL SQ SCH (06:01)
[2017-01-17] MEDS: Fluticasone Propionate Nasal 50 MCG/SPRAY BOTTLE NS SCH (09:00)
[2017-01-17 11:50] VITALS: BP 185/84
--- NOTE | 2017-01-17 14:05 | Discharge Summary ---
Date of Encounter: 01/17/17 Time of Encounter: 14:00 - Discharge Diagnosis (1) Small bowel obstruction Priority: Primary Status: Resolved (2) Acute renal failure superimposed on chronic kidney disease Priority: Secondary Status: Resolved Qualifiers: Acute renal failure type: unspecified Chronic kidney disease stage: stage 3 (moderate) Qualified Code(s): N17.9 - Acute kidney failure, unspecified; N18.3 - Chronic kidney disease, stage 3 (moderate) (3) Accelerated hypertension Priority: Secondary Status: Chronic - Discharge Medications Prescriptions: OxyCODONE/APAP 10/325 [Percocet 10/325 MG] 1 each PO Q4HR PRN #30 tablet PRN Reason: Pain Ibuprofen [Motrin] 600 mg PO Q6HR PRN #50 tab PRN Reason: Mild Pain Docusate [Colace] 100 mg PO DAILY #30 capsule Home Medications: Losartan Potassium [Cozaar] 50 mg PO DAILY 03/22/16 [History] Tamsulosin [Flomax] 0.4 mg PO HS 11/24/16 [History] Trospium Chloride 20 mg PO DAILY 11/24/16 [History] Atenolol [Tenormin] 50 mg PO DAILY #30 tablet 12/02/16 [Rx] hydrALAZINE [HydrALAZINE] 25 mg PO TID 12/02/16 [History] Diltiazem HCl [Diltiazem 24Hr Cd] 240 mg PO DAILY 01/11/17 [History] Docusate [Colace] 100 mg PO DAILY 01/11/17 [History] Fluticasone Propionate Nasal [Flonase] 2 spr NS DAILY 01/12/17 [History] Docusate [Colace] 100 mg PO DAILY #30 capsule 01/14/17 [Rx] OxyCODONE/APAP 10/325 [Percocet 10/325 MG] 1 each PO Q4HR PRN #30 tablet [Rx] Ibuprofen [Motrin] 600 mg PO Q6HR PRN #50 tab 01/17/17 [Rx] Allergies/Adverse Reactions: 3 Allergy/AdvReac Type Severity Reaction Status Date / Time No Known Allergies Allergy Verified 01/11/17 15:39 General Surgery Exam Initial Vital Signs Temp Pulse Resp BP Pulse Ox 98 F 61 18 187/100 88 01/11/17 22:41 01/11/17 22:41 01/11/17 22:41 01/11/17 22:41 01/11/17 22:41 - General physical appearance well developed, well nourished, no distress - Eyes normal ocular movement - ENT normal mucosa, atraumatic, normocephalic - Neck trachea midline - Respiratory normal respiratory effort, clear to auscultation - Cardiovascular Cardiovascular exam: Present: RRR - Abdomen Abdomen general surgery: Present: bowel sounds present, soft, tender (expected post-operative tenderness) - Incision Incision: Present: clean and dry, intact - Integumentary Integumentary general surgery: Present: warm and dry - Neurologic Present: CN 2-12 grossly intact - Musculoskeletal Present: other (generalized weakness) - Psychiatric Psychiatric general surgery: Present: A&Ox3 Date of admission: 01/12/17 08:08 Primary care physician: Dejuan Bowen CNP Consults: 01/12/17 11:15 Consult to Cardiology [CONS] Routine Comment: Consulting Provider: Cardiology Daniela Reason for Consult: risk stratification; uncontrolled hypertension Time Notified: 11:16 Call Completed: Yes 01/12/17 11:23 Consult to Nephrology [CONS] Routine Consulting Provider: [facility] [place]/LARS/JAZZY/SWETA Reason for Consult: CKD stage 3; may need surgical intervention for SBO Time Notified: 11:25 Call Completed: Yes 01/14/17 09:52 OT [Consult to Occupational Therapy] [CONS] Routine Comment: Evaluate, develop and implement POC Reason for Consult: weakness PT [Consult to Physical Therapy] [CONS] Routine Comment: Evaluate, develop and implement POC Reason for Consult: weakness 01/17/17 08:40 Consult to Machine Binder Stripper [CONS] Routine Reason for SW Consult: PT recommending Swing/rehab Discharging clinician: Bennie Madrigal) Anticipated date of discharge: 01/17/17 - Patient Status Disposition: Home Health Service Condition: Good Functional capacity at discharge: independent ambulation Overall status at discharge: patient is progressing back to baseline - Discharge Instructions Follow Up With: Bennie Pérez MD [Non-Partnered Physician] - 01/24/17 2:00 pm Dejuan Bowen CNP [Primary Care Provider] - Additional Instructions: Discharge instructions: #1 May shower, no tub bath X 2 weeks #2 Wash incisions with soap and water and pat dry daily #3 No lifting/pushing/pulling greater than 15 lb. for a total of 4 weeks #4 No driving until off narcotics and able to safely react in the car #5 May climb stairs #6 PT/OT assess and treat - Diet and Activity Activity: other (See additional instructions above) Diet: advance to your usual diet - Hospital Course Hospital course: Mr. Bocanegra is a 71 year old male presented to the hospital with complaints of abdominal pain with associated nausea/vomiting. He was found to have a SBO. He was treated with conservative therapy including bowel rest with NG tube to LIWS and IV fluids. He failed to improve with conservative measures. He was taken to the operating room with Dr. Pérez and is s/p diagnostic laparoscopy, exteriorization of small bowel, small bowel resection with primary (stapled) anastomosis, collection of intraperitoneal fluid for cytology. He was maintained on bowel rest while awaiting return of bowel function. His NG tube was removed on post-operative day #1. His diet has been advanced as tolerated and he is currently tolerating a soft diet. His vital signs are stable and he is afebrile. His pain is well controlled. He is voiding without difficulty. He is ready for discharge to home and is requesting home health care. PT/OT have seen and evaluated the patient are recommending inpatient rehab. The patient states that he would like to go home and declines inpatient rehab. Consult was obtained from cardiology during hospital stay for uncontrolled HTN. Will resume home medication regimen and f/u with PCP within 1 week. Goal SBP is 170's per cardiology recommendation. Consult was obtained from nephrology during hospital stay for optimization of kidneys prior to surgeries. - Time Spent with Patient Total time spent providing and/or coordinating discharge services: Less than 30 minutes Labs on day of discharge: Labs from last 24 hours 01/17/17 03:31 Sodium 139 Potassium 3.2 L Chloride 107 Carbon Dioxide 24 BUN 14 Creatinine 1.06 Est GFR ( Amer) > 60 Est GFR (Non-Af Amer) > 60 BUN/Creatinine Ratio 13 Glucose 88 Calculated Osmolality 288 Calcium 8.9 - Impressions ITS Impressions Abdomen X-Ray 01/12/17 08:57 IMPRESSION: CT and prior radiograph compare to current study suggest either ileus or a partial small bowel obstruction. Enteric contrast has progressed into the colon. Recommend advancement of nasogastric tube as side holes are at the GE junction. D/ / Eran Webb MD / Eran Webb MD Interpreting Provider: Eran Webb MD Chest/Abdomen X-ray 01/13/17 06:00 IMPRESSION: 1. Appropriate position of the nasogastric tube. 2. Persistent prominence of loops of small bowel in the central abdomen measuring up to 3.3 cm. 3. Small left base opacity with trace effusion. D/ / 01/13/2017 10:24:37 Ellen Decker MD / kika Interpreting Provider: Ellen Decker MD - Attending Attestation For this encounter, I have reviewed the SENIOR UI UX DEVELOPER or PA documentation, treatment plan, and medical decision making; and I have had face to face time with this patient.
== END 2017-01-17 16:11 | disposition home health service (06) | DRG 330 ==
LOC: 3ANU 22:32 → EMEROO 22:32 → 3ANU 01-12 00:10
PROVIDERS: ADMIT Surgery; ATTEND Surgery

== ENCOUNTER 2020-02-20 08:48 | Inpatient (IN) ==
[2020-02-20] MEDS ORDERED: cefOXitin 2,000 MG in Water for inj. (sterile) 20 ML IVP ONE (09:16)
[2020-02-20] MEDS ORDERED: Ringers Solution, Lactated 1,000 ML IVC SCH (09:30)
[2020-02-20] MEDS ORDERED: Famotidine 20 MG/2 ML VIAL IVP ONE (09:39)
[2020-02-20] MEDS ORDERED: Acetaminophen IV 1,000 MG/100 ML INFUS..BTL IVPB ONE (09:39)
[2020-02-20] MEDS ORDERED: Promethazine 6.25 MG in Water for inj. (sterile) 20 ML IVPB PRN (09:40)
[2020-02-20] MEDS ORDERED: Ondansetron 4 MG/2 ML VIAL IVP PRN (09:40)
[2020-02-20] MEDS ORDERED: *HR* Metoprolol 5 MG/5 ML VIAL IVP PRN (09:40)
[2020-02-20] MEDS ORDERED: *HR* OxyCODONE Immed Rel 5 MG TABLET PO PRN (09:40)
[2020-02-20] MEDS ORDERED: Dexamethasone 4 MG/ML VIAL ONE (10:49)
[2020-02-20] MEDS ORDERED: *HR* FentaNYL (PF) 100 MCG/2 ML VIAL ONE ×3 (10:49→14:42)
[2020-02-20] MEDS ORDERED: Ondansetron 4 MG/2 ML VIAL ONE (10:49)
[2020-02-20] MEDS ORDERED: Lidocaine -MPF 4% 5 ML AMPUL ONE (10:49)
[2020-02-20] MEDS ORDERED: *HR* Propofol 200 MG/20 ML VIAL IVP ONE (10:49)
[2020-02-20] MEDS ORDERED: Lidocaine -MPF 2% 2 ML VIAL ONE ×2 (10:49→14:11)
[2020-02-20] MEDS ORDERED: *HR* Rocuronium Bromide 50 MG/5 ML VIAL ONE (10:49)
[2020-02-20] MEDS ORDERED: EPHEDrine 50 MG/ML VIAL ONE (11:11)
[2020-02-20] MEDS ORDERED: *HR* Labetalol 20 MG/4 ML SYRINGE IVP ONE (13:03)
[2020-02-20] MEDS ORDERED: *HR* Magnesium Sulfate 1 GM/2 ML VIAL ONE (14:10)
[2020-02-20] MEDS: *HR* HYDROmorphone PF 0.5 MG/0.5 ML SYRINGE IVP PRN ×4 (15:07→15:27)
[2020-02-20] MEDS ORDERED: *HR* FentaNYL (PF) 100 MCG/2 ML VIAL IVP PRN (16:09)
[2020-02-20] MEDS ORDERED: Dexmedetomidine HCl 0 MCG/0 ML MLS IVC ONE (16:51)
[2020-02-20] MEDS ORDERED: Ketorolac 15 MG/ML VIAL IVP PRN (16:55)
[2020-02-20] MEDS ORDERED: Acetaminophen IV 1,000 MG/100 ML INFUS..BTL IVPB SCH (18:00)
[2020-02-21] MEDS ORDERED: *HR* Metoprolol 5 MG/5 ML VIAL IVP PRN (13:10)
[2020-02-22 07:49] LABS: Basophils # 0.1 K/mcL (0.0-0.2); Basophils % 0.4 %; Eosinophils # 0.1 K/mcL (0.0-0.6); Eosinophils % 0.4 %; Hematocrit 39.6 % (37.5-50.1); Hemoglobin 12.7 g/dL (12.9-16.9); Immature Granulocytes % 0.3 % (0-4); Lymphocytes # 3.4 K/mcL (0.6-4.6); Lymphocytes % 25.2 %; Mean Corpuscular HGB Conc 32.1 g/dL (31.6-35.5); Mean Corpuscular Hemoglobin 29.7 pg (28.0-33.3); Mean Corpuscular Volume 92.5 fL (83.0-100.0); Mean Platelet Volume 10.5 fL (9.4-12.4); Monocytes # 1.3 K/mcL (0.0-1.3); Monocytes % 9.3 %; Neutrophils # 8.7 K/mcL (1.6-8.9); Platelet Count 227 K/mcL (140-400); Red Blood Count 4.28 M/mcL (4.19-5.50); Red Cell Distribution Width 14.4 % (11.5-14.5); Segmented Neutrophils % 64.4 %; White Blood Count 13.5 K/mcL (4.3-11.1)
[2020-02-22 08:03] LABS: BUN/Creatinine Ratio 10 (6-26); Blood Urea Nitrogen 12 mg/dL (8-23); Calcium 9.4 mg/dL (8.6-10.3); Carbon Dioxide 26 mEq/L (23-29); Chloride 105 mEq/L (98-107); Glucose 114 mg/dL (70-105); Magnesium 1.9 mg/dL (1.6-2.6); Osmolality,Calculated 287 (280-300); Phosphorous 2.6 mg/dL (2.7-4.5); Sodium 138 mEq/L (136-145); eGFR For African Americans > 60 (> 60); eGFR For Non-African Americans 60 (> 60)
[2020-02-22] MEDS ORDERED: Simethicone 80 MG TAB.CHEW PO PRN (08:36)
[2020-02-22] MEDS ORDERED: Fluticasone Propionate Nasal 50 MCG/SPRAY BOTTLE NS PRN (08:37)
[2020-02-22] MEDS ORDERED: IRBESARTAN 150 MG PO SCH (09:00)
[2020-02-22] MEDS: Scopolamine Patch 1.5 MG PATCH.TD72 TD SCH (09:12)
[2020-02-22] MEDS: DilTIAZem CD (24hr) 240 MG CAP.ER.24H PO SCH (09:14)
[2020-02-22] MEDS: hydrALAZINE 25 MG TABLET PO SCH (09:14)
[2020-02-22] MEDS: atenoloL 50 MG TABLET PO SCH (09:14)
[2020-02-22] MEDS: Aspirin Enteric Coated 81 MG Tablet PO SCH (09:14)
[2020-02-22] MEDS: *HR* Heparin 5,000 UNIT/ML VIAL SQ SCH ×2 (09:15→17:46)
[2020-02-22] MEDS: Acetaminophen IV 1,000 MG/100 ML INFUS..BTL IVPB SCH ×3 (10:49→17:46)
[2020-02-22] MEDS: Metoclopramide 10 MG/2 ML VIAL IVP SCH ×2 (12:00→17:46)
[2020-02-23] MEDS: Metoclopramide 10 MG/2 ML VIAL IVP SCH ×5 (00:14→23:45)
[2020-02-23] MEDS: Acetaminophen IV 1,000 MG/100 ML INFUS..BTL IVPB SCH ×3 (00:15→11:37)
[2020-02-23] MEDS: *HR* Heparin 5,000 UNIT/ML VIAL SQ SCH ×2 (05:26→17:49)
[2020-02-23 08:16] LABS: Basophils % 0.4 %; Eosinophils # 0.2 K/mcL (0.0-0.6); Eosinophils % 1.8 %; Hematocrit 37.4 % (37.5-50.1); Hemoglobin 12.1 g/dL (12.9-16.9); Immature Granulocytes % 0.3 % (0-4); Lymphocytes # 2.6 K/mcL (0.6-4.6); Lymphocytes % 23.4 %; Mean Corpuscular HGB Conc 32.4 g/dL (31.6-35.5); Mean Corpuscular Volume 92.6 fL (83.0-100.0); Mean Platelet Volume 10.4 fL (9.4-12.4); Monocytes % 8.5 %; Neutrophils # 7.3 K/mcL (1.6-8.9); Platelet Count 207 K/mcL (140-400); Red Blood Count 4.04 M/mcL (4.19-5.50); Segmented Neutrophils % 65.6 %; White Blood Count 11.2 K/mcL (4.3-11.1)
[2020-02-23 08:38] LABS: BUN/Creatinine Ratio 11 (6-26); Blood Urea Nitrogen 12 mg/dL (8-23); Calcium 9.2 mg/dL (8.6-10.3); Carbon Dioxide 25 mEq/L (23-29); Chloride 107 mEq/L (98-107); Glucose 96 mg/dL (70-105); Osmolality,Calculated 288 (280-300); Phosphorous 3.2 mg/dL (2.7-4.5); Potassium 3.7 mEq/L (3.5-5.1); Sodium 139 mEq/L (136-145); eGFR For African Americans > 60 (> 60); eGFR For Non-African Americans > 60 (> 60)
[2020-02-23] MEDS: DilTIAZem CD (24hr) 240 MG CAP.ER.24H PO SCH (10:00)
[2020-02-23] MEDS: hydrALAZINE 25 MG TABLET PO SCH (10:00)
[2020-02-23] MEDS: atenoloL 50 MG TABLET PO SCH (10:00)
[2020-02-23] MEDS: Aspirin Enteric Coated 81 MG Tablet PO SCH (10:00)
[2020-02-23] MEDS: *HR* OxyCODONE/APAP 10/325 TABLET PO PRN (17:00)
[2020-02-24] MEDS: Metoclopramide 10 MG/2 ML VIAL IVP SCH ×2 (05:44→13:04)
[2020-02-24] MEDS: *HR* Heparin 5,000 UNIT/ML VIAL SQ SCH ×2 (05:44→18:59)
[2020-02-24] MEDS: hydrALAZINE 25 MG TABLET PO SCH (10:17)
[2020-02-24] MEDS: atenoloL 50 MG TABLET PO SCH (10:17)
[2020-02-24] MEDS: DilTIAZem CD (24hr) 240 MG CAP.ER.24H PO SCH (10:17)
[2020-02-24] MEDS: Aspirin Enteric Coated 81 MG Tablet PO SCH (10:17)
[2020-02-24] MEDS: *HR* OxyCODONE/APAP 10/325 TABLET PO PRN (10:17)
[2020-02-25] MEDS: *HR* OxyCODONE/APAP 10/325 TABLET PO PRN (00:17)
[2020-02-25] MEDS: *HR* Heparin 5,000 UNIT/ML VIAL SQ SCH (06:01)
[2020-02-25 07:39] VITALS: BP 156/70
[2020-02-25] MEDS: atenoloL 50 MG TABLET PO SCH (09:05)
[2020-02-25] MEDS: Scopolamine Patch 1.5 MG PATCH.TD72 TD SCH (09:05)
[2020-02-25] MEDS: Aspirin Enteric Coated 81 MG Tablet PO SCH (09:06)
[2020-02-25] MEDS: hydrALAZINE 25 MG TABLET PO SCH (09:06)
[2020-02-25] MEDS: DilTIAZem CD (24hr) 240 MG CAP.ER.24H PO SCH (09:06)
== END 2020-02-25 11:33 | disposition home or self-care (01) | DRG 331 ==
LOC: SAMDAY 08:48 → 3ANU 08:48
PROVIDERS: ADMIT Surgery; ATTEND Surgery

== ENCOUNTER 2021-10-04 17:02 | Observation (INO) ==
[2021-10-04] MEDS ORDERED: Naloxone 0.4 MG/ML INJ IVP PRN (19:37)
[2021-10-04] MEDS ORDERED: Ondansetron 4 MG/2 ML VIAL IVP PRN (19:37)
[2021-10-04] MEDS ORDERED: 0.9 % Sodium Chloride 1,000 ML IVC SCH (19:45)
[2021-10-04] MEDS ORDERED: atenoloL 50 MG TABLET PO SCH (22:30)
[2021-10-04] MEDS: amLODIPine 5 MG TABLET PO SCH (22:54)
[2021-10-05] MEDS ORDERED: 0.9 % Sodium Chloride 1,000 ML IVC SCH ×2 (08:00→14:50)
[2021-10-05 08:41] LABS: Hematocrit 36.9 % (37.5-50.1); Hemoglobin 12.1 g/dL (12.9-16.9); Mean Corpuscular HGB Conc 32.8 g/dL (31.6-35.5); Mean Corpuscular Hemoglobin 31.2 pg (28.0-33.3); Mean Corpuscular Volume 95.1 fL (83.0-100.0); Mean Platelet Volume 10.7 fL (9.4-12.4); Platelet Count 215 K/mcL (140-400); Red Blood Count 3.88 M/mcL (4.19-5.50); Red Cell Distribution Width 12.6 % (11.5-14.5); White Blood Count 12.5 K/mcL (4.3-11.1)
[2021-10-05 09:03] LABS: Calcium 9.1 mg/dL (8.6-10.3); Magnesium 1.8 mg/dL (1.6-2.6); Potassium 4.7 mEq/L (3.5-5.1)
[2021-10-05] MEDS ORDERED: levoFLOXacin 500 MG/100 ML 500 MG/100 ML BAG IVPB ONE (09:18)
[2021-10-05] MEDS: amLODIPine 5 MG TABLET PO SCH (10:16)
[2021-10-05] MEDS ORDERED: atenoloL 50 MG TABLET PO SCH (11:02)
[2021-10-05] MEDS ORDERED: Isovue-300 50ML VIAL ONE (12:42)
[2021-10-05] MEDS ORDERED: *HR* FentaNYL (PF) 100 MCG/2 ML VIAL ONE (12:47)
[2021-10-05] MEDS ORDERED: Lidocaine -MPF 2% 2 ML VIAL ONE ×2 (12:48→12:57)
[2021-10-05] MEDS ORDERED: *HR* Propofol 200 MG/20 ML VIAL IVP ONE (12:48)
[2021-10-05] MEDS ORDERED: *HR* FentaNYL (PF) 100 MCG/2 ML VIAL IVP PRN (12:58)
[2021-10-05] MEDS ORDERED: Ondansetron 4 MG/2 ML VIAL ONE (13:24)
[2021-10-05] MEDS ORDERED: Ondansetron 4 MG/2 ML VIAL IVP PRN (14:50)
[2021-10-06 01:23] LABS: Basophils % 0.1 %; Hematocrit 34.9 % (37.5-50.1); Hemoglobin 11.5 g/dL (12.9-16.9); Immature Granulocytes % 0.4 % (0-4); Lymphocytes # 1.1 K/mcL (0.6-4.6); Mean Corpuscular Hemoglobin 31.3 pg (28.0-33.3); Mean Corpuscular Volume 94.8 fL (83.0-100.0); Mean Platelet Volume 10.5 fL (9.4-12.4); Monocytes # 0.5 K/mcL (0.0-1.3); Monocytes % 5.1 %; Neutrophils # 8.9 K/mcL (1.6-8.9); Platelet Count 215 K/mcL (140-400); Red Blood Count 3.68 M/mcL (4.19-5.50); Red Cell Distribution Width 12.7 % (11.5-14.5); Segmented Neutrophils % 84.4 %; White Blood Count 10.5 K/mcL (4.3-11.1)
[2021-10-06 01:42] LABS: Magnesium 1.8 mg/dL (1.6-2.6); Phosphorous 2.1 mg/dL (2.7-4.5); Potassium 4.6 mEq/L (3.5-5.1)
[2021-10-06 02:03] LABS: Adenovirus F 40/41 PCR Not detected (Not detect); Astrovirus PCR Not detected (Not detect); C.difficile Toxin A/B Gene PCR Not detected (Not detect); Campylobacter by PCR Not detected (Not detect); Cryptosporidium by PCR Not detected (Not detect); Cyclospora cayetanensis PCR Not detected (Not detect); Entamoeba histolytica PCR Not detected (Not detect); Enteroaggregative E.coli(EAEC) Not detected (Not detect); Enteropathogenic E.coli(EPEC) Not detected (Not detect); Enterotoxigenic E.coli (ETEC) Not detected (Not detect); Giardia lamblia PCR Not detected (Not detect); Norovirus GI/GII PCR DETECTED (Not detect); Plesiomonas shigelloides PCR Not detected (Not detect); Rotavirus A PCR Not detected (Not detect); Salmonella PCR Not detected (Not detect); Sapovirus PCR Not detected (Not detect); Shig/EnteroinvasiveE coli EIEC Not detected (Not detect); Shigalike tox-prod E coli STEC Not detected (Not detect); Vibrio PCR Not detected (Not detect); Vibrio cholerae PCR Not detected (Not detect); Yersinia enterocolitica PCR Not detected (Not detect)
[2021-10-06 07:11] VITALS: O2SAT 99
[2021-10-06] MEDS ORDERED: Cholecalciferol (D-3) 1,000 UNIT (25MCG) TABLET PO SCH ×2 (09:00)
[2021-10-06] MEDS ORDERED: amLODIPine 5 MG TABLET PO SCH (09:00)
[2021-10-06 11:57] VITALS: BP 154/71; PULSE 51; TEMP 97.3
== END 2021-10-06 12:40 | disposition home or self-care (01) ==
LOC: 3ANU → SUATTDRO 18:30
PROVIDERS: ADMIT Student in an Organized Health Care Education/Training Program; ATTEND Internal Medicine